=== PATIENT | female | born 1975 | race Caucasian/White ===

== ENCOUNTER 2025-04-23 19:00 | Inpatient (IN) | payer OTHER, SELFPAY ==
[2025-04-23 19:29] VITALS: BP 151/97; PULSE 91; RESP 18; TEMP 36.4; O2SAT 100; BMI 24.3
--- NOTE | 2025-04-23 19:35 | PC.NURSE ---
Patient was an external admit that arrived at 1913 on a CV. Patients slip box changer was completed with another nurse (mauro) and vitals along with height and weight have been documented. Patient was oriented to the unit and requested to go to her room for the time being.
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
[2025-04-24 08:00] VITALS: BP 133/70; PULSE 94; RESP 16; TEMP 36.6; O2SAT 99
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
[2025-04-24] MEDS: Nicotine 21 MG PATCH.TD24 TRANSDERMA (09:53)
[2025-04-24] MEDS: Albuterol Sulfate 90 MCG 8 GM INHALER 2 PUFF INHALE (09:53)
[2025-04-24] MEDS: Methylphenidate HCl 10 MG TABLET 20 MG PO ×2 (12:06→14:55)
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
[2025-04-24] MEDS: Acetaminophen 325 MG TABLET 650 MG PO (14:57)
[2025-04-24 20:00] VITALS: BP 137/95; PULSE 91; RESP 16; TEMP 36.9; O2SAT 98
[2025-04-24] MEDS: QUEtiapine Fumarate 300 MG TABLET PO (20:30)
[2025-04-24] MEDS: Lithium Carbonate 300 MG CAPSULE 600 MG PO (20:30)
[2025-04-24] MEDS: Topiramate 25 MG TABLET 50 MG PO (20:30)
[2025-04-24] MEDS: OLANZapine 7.5 MG TABLET 15 MG PO (20:30)
[2025-04-25] MEDS: Methylphenidate HCl 10 MG TABLET 20 MG PO ×3 (06:16→13:59)
[2025-04-25] MEDS: Ibuprofen 800 MG TABLET PO ×2 (07:30→20:07)
[2025-04-25 08:00] VITALS: BP 124/80; PULSE 101; RESP 16; TEMP 36.9; O2SAT 98
[2025-04-25 08:46] LABS: Estimated Average Glucose 103 mg/dL; Hemoglobin A1C 120.0272 umol/L; Hemoglobin A1c % 5.2 % (<6.0); Total Hemoglobin (HGBA1C) 3569.8642 umol/L
[2025-04-25 08:56] LABS: Cholesterol 183 mg/dL (<200); HDL Cholesterol 49 mg/dL (>40); LDL Cholesterol Calculated 116 mg/dL (<100); Triglycerides 93 mg/dL (<150)
[2025-04-25 09:11] LABS: Free T4 (Free Thyroxine) 0.96 ng/dL (0.71-1.85); Thyroid Stimulating Hormone 1.02 uIU/mL (0.32-4.0)
[2025-04-25 09:24] LABS: Folate 6.9 ng/mL (> or = 4.0); Vitamin B12 902 pg/mL (200-900)
[2025-04-25] MEDS: Nicotine Polacrilex 2 MG GUM 4 MG BUCCAL (09:30)
[2025-04-25] MEDS: Nicotine 14 MG PATCH.TD24 TRANSDERMA (11:11)
[2025-04-25] MEDS: Loratadine 10 MG TABLET PO (11:23)
[2025-04-25] MEDS: Multivitamin TABLET 1 TAB PO (11:24)
[2025-04-25] MEDS: Acetaminophen 325 MG TABLET 650 MG PO (14:57)
--- NOTE | 2025-04-25 16:16 | HO.PSYCHPN ---
Subjective Subjective Date of Service: 04/25/25 Reason For Visit: unspecified bipolar disorder Interim History: states she needs to leave [facility] bcse she has 2 root canals scheduled for saturday and is her daughter's birthday. she is feeling fine, this is all a mistake, she doesn't belong here, she just said something in a moment of anger, and... reminded pt that due to her Hx, people will take such things said by her very seriously. per staff, denies dep/anx. not attending groups. lots of time on the phone. denies SI/HI. slept 8 hours. no issues. Mental Status Exam Mental Status Exam Narrative: adequately dressed and groomed. cooperative. PMA or frequent movements in her seat, repositioning. speech incr rate, amount. decr latency. nml loudness. thoughts focused on discharge. linear and logical in general. affect flexible, hyper-intense. mood euthymic. no SI/SIBI/HI/AVH expressed. Diagnostics Vital Signs (24Hr): Vital Signs - 24 hr 04/24/25 20:00 04/25/25 08:00 Temperature 98.4 F 98.4 F Pulse Rate 91 101 H Respiratory Rate 16 16 Blood Pressure 137/95 H 124/80 Pulse Oximetry 98 98 Oxygen Delivery Method Room Air Room Air BMI result Body Mass Index 24.3 Labs Labs: Laboratory Results - last 48 hr 04/25/25 08:25 Estimat Average Glucose 103 Hemoglobin A1c % 5.2 Triglycerides 93 Cholesterol 183 LDL Cholesterol, Calc 116 H HDL Cholesterol 49 Vitamin B12 902 H Folate 6.9 TSH 1.02 Free T4 0.96 Medications Medications Current Medications Acetaminophen (Acetaminophen 325 Mg Tablet) 650 mg PO Q6H PRN PRN Reason: Headache/Pain, Scale 1-10 Last Admin: 04/25/25 14:57 Dose: 650 mg Al Hydroxide/Mg Hydroxide (Magnesium Hydrox/Alum Hydrox 30 Ml Oral.Susp) 30 ml PO Q6H PRN PRN Reason: Heartburn/Nausea Albuterol Sulfate (Albuterol Sulfate 90 Mcg 8 Gm Inhaler) 2 puff INHALE RQ4H PRN PRN Reason: Shortness of Breath/Wheezing Last Admin: 04/24/25 09:53 Dose: 2 puff Fluticasone/Vilanterol (Fluticasone/Vilanterol 100/25 Blst.W.Dev) 1 puff INHALE RDAILY [facility] Last Admin: 04/25/25 09:06 Dose: Not Given Hydroxyzine HCl (Hydroxyzine Hcl 25 Mg Tablet) 25 mg PO Q6H PRN PRN Reason: mild anxiety Ibuprofen (Ibuprofen 800 Mg Tablet) 800 mg PO Q8H PRN PRN Reason: pain (pain scale 1-10) Last Admin: 04/25/25 07:30 Dose: 800 mg [place] Carbonate ([place] Carbonate 300 Mg Capsule) 600 mg PO BEDTIME [facility] Last Admin: 04/24/25 20:30 Dose: 600 mg Loratadine (Loratadine 10 Mg Tablet) 10 mg PO DAILY [facility] Last Admin: 04/25/25 11:23 Dose: 10 mg Magnesium Hydroxide (Milk Of Magnesia 30 Ml Oral.Susp) 30 ml PO DAILY PRN PRN Reason: Constipation Methylphenidate HCl (Methylphenidate Hcl 10 Mg Tablet) 20 mg PO TID@0600,1000,1400 [facility] Last Admin: 04/25/25 13:59 Dose: 20 mg Multivitamins/Vitamin C (Multivitamin Tablet) 1 tab PO DAILY [facility] Last Admin: 04/25/25 11:24 Dose: 1 tab Nicotine (Nicotine 14 Mg Patch.Td24) 14 mg TRANSDERMA DAILY [facility] Last Admin: 04/25/25 11:11 Dose: 14 mg Nicotine Polacrilex (Nicotine Polacrilex 2 Mg Gum) 4 mg BUCCAL Q2H PRN PRN Reason: Nicotine Cravings Last Admin: 04/25/25 09:30 Dose: 2 mg Olanzapine (Olanzapine 7.5 Mg Tablet) 15 mg PO BEDTIME [facility] Last Admin: 04/24/25 20:30 Dose: 15 mg Quetiapine Fumarate (Quetiapine Fumarate 50 Mg Tablet) 50 mg PO BID PRN PRN Reason: anxiety Quetiapine Fumarate (Quetiapine Fumarate 300 Mg Tablet) 300 mg PO BEDTIME [facility] Last Admin: 04/24/25 20:30 Dose: 300 mg Topiramate (Topiramate 25 Mg Tablet) 50 mg PO BEDTIME [facility] Last Admin: 04/24/25 20:30 Dose: 50 mg Trazodone HCl (Trazodone Hcl 50 Mg Tablet) 50 mg PO BEDTIME MRX1 PRN PRN Reason: Insomnia Allergies Allergies Allergy/AdvReac Type Severity Reaction Status Date / Time Unable to Assess Allergy Verified 04/23/25 19:26 Assessment & Plan Assessment & Plan (1) Bipolar disorder: Status: Acute Code(s): F31.9 - Bipolar disorder, unspecified (2) TBI (traumatic brain injury): Status: Acute Code(s): S06.9XAA - Unspecified intracranial injury with loss of consciousness status unknown, initial encounter Plan 04/24: continue home medications. observe for safety and stability. 04/25: denies Sx, future-oriented, asking for discharge. intense, but sleeping 8 hours. continue observation. Reason for continued inpatient stay Substantial Risk for: harm to self, inability to function and rapid decompensation Time Spent With Patient Time: Total time managing care of this patient today ____ minutes.
[2025-04-25 20:00] VITALS: BP 122/71; PULSE 75; RESP 16; TEMP 36.8; O2SAT 99
[2025-04-25] MEDS: QUEtiapine Fumarate 300 MG TABLET PO (20:07)
[2025-04-25] MEDS: Topiramate 25 MG TABLET 50 MG PO (20:07)
[2025-04-25] MEDS: Lithium Carbonate 300 MG CAPSULE 600 MG PO (20:08)
[2025-04-25] MEDS: QUEtiapine Fumarate 50 MG TABLET PO (20:08)
[2025-04-25] MEDS: OLANZapine 7.5 MG TABLET 15 MG PO (20:08)
[2025-04-26] MEDS: Methylphenidate HCl 10 MG TABLET 20 MG PO ×2 (06:19→09:58)
[2025-04-26 07:20] VITALS: BP 120/81; PULSE 94; RESP 14; TEMP 36.6; O2SAT 100
[2025-04-26] MEDS: Nicotine 14 MG PATCH.TD24 TRANSDERMA (08:20)
[2025-04-26] MEDS: Ibuprofen 800 MG TABLET PO (08:21)
[2025-04-26] MEDS: Loratadine 10 MG TABLET PO (08:21)
[2025-04-26] MEDS: Multivitamin TABLET 1 TAB PO (08:21)
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
== END 2025-04-26 11:20 | disposition home or self-care (01) | DRG 885 ==
PROVIDERS: Admitting Provider Psychiatry & Neurology Psychiatry; PCP Student in an Organized Health Care Education/Training Program; Visit Provider Psychiatry & Neurology Psychiatry
DX: F31.9 Bipolar disorder, unspecified (principal); G93.1 Anoxic brain damage, not elsewhere classified; R45.851 Suicidal ideations; J45.40 Moderate persistent asthma, uncomplicated; F17.210 Nicotine dependence, cigarettes, uncomplicated; T71.162S Asphyxiation due to hanging, intentional self-harm, sequela; Z71.6 Tobacco abuse counseling; Z79.899 Other long term (current) drug therapy
CPT/HCPCS: 36415; 80061; 82607; 82746; 83036; 84439; 84443

== ENCOUNTER → 2025-04-23 19:00 | Outpatient (BNV) | payer OTHER, SELFPAY | PROVIDERS: Admitting Provider Psychiatry & Neurology Psychiatry; PCP Student in an Organized Health Care Education/Training Program; Visit Provider Physician Assistant | DX: Z00.8 Encounter for other general examination (principal) | CPT/HCPCS: 99222; 99499 ==

== ENCOUNTER → 2025-04-23 19:00 | Outpatient (BNV) | payer OTHER, SELFPAY | PROVIDERS: Admitting Provider Psychiatry & Neurology Psychiatry; PCP Student in an Organized Health Care Education/Training Program; Visit Provider Psychiatry & Neurology Psychiatry | DX: F31.9 Bipolar disorder, unspecified (principal); Z87.820 Personal history of traumatic brain injury | CPT/HCPCS: 90792; 99231; 99239 ==